=== PATIENT | male | born 1975 | race Caucasian/White ===

== ENCOUNTER 2016-07-13 18:24 | Emergency (ER) | payer OTHER ==
[2016-07-13 18:26] VITALS: BP 142/104; PULSE 107; RESP 16; TEMP 98.2; O2SAT 98
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
[2016-07-13] MEDS ORDERED: CYCL1TAB29 PO (19:42)
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
[2016-07-13 19:45] VITALS: BP 143/108; PULSE 88; RESP 17; O2SAT 99
[2016-07-13] MEDS ORDERED: IBUPROFEN 600 MG TAB PO ONE ×2 (20:00)
--- NOTE | 2016-07-14 10:38 | EKG ---
Date Performed: 07/13/2016 Time Performed: 19:51:36 PTAGE: 41 years EKG: Sinus rhythm NORMAL ECG NO PREVIOUS TRACING DOCTOR: Rica Childs Interpretating Date/Time 07/14/2016 10:36:51
== END 2016-07-13 20:01 | disposition home or self-care (01) ==
LOC: NEPD 18:24
DX: R07.9 Chest pain, unspecified (principal); V49.50XA Passenger injured in collision with unspecified motor vehicles in traffic accident, initial encounter
CPT/HCPCS: 71020; 93005